=== PATIENT | male | born 1970 | race Caucasian/White ===

== ENCOUNTER 2018-07-16 17:32 | Emergency (ER) | payer MEDICAID, OTHER ==
[~2018-07-16] VITALS: Ht 180.3 cm; Wt 137.0 kg
[~2018-07-16 17:32] MED LIST: DIABETIC MEDS
[2018-07-17] MEDS ORDERED: SODIUM CHLORIDE 0.9% 1,000 ML IV ONE (07:15)
[2018-07-17 08:50] LABS: CLARITY URINE CLEAR (CLEAR); COLOR URINE YELLOW (YELLOW); KETONES URINE 1+ (NEGATIVE); LEUKOCYTE ESTERASE URINE NEGATIVE (NEGATIVE); NITRITE URINE NEGATIVE (NEGATIVE); OCCULT BLOOD URINE NEGATIVE (NEGATIVE); PH URINE 6.5 (4.5-8.0); PROTEIN URINE NEGATIVE (NEGATIVE); SPECIFIC GRAVITY URINE 1.035 (1.005-1.030); UROBILINOGEN URINE 0.2 E.U./dL (0.2-1.0)
[2018-07-17 10:30] VITALS: BP 150/72
== END 2018-07-17 10:30 | disposition home or self-care (01) ==
LOC: ER 18:19
DX: J06.9 Acute upper respiratory infection, unspecified (principal); E11.65 Type 2 diabetes mellitus with hyperglycemia; I10 Essential (primary) hypertension; Z90.89 Acquired absence of other organs; Z79.84 Long term (current) use of oral hypoglycemic drugs
CPT/HCPCS: 71045; 81003; 82962; 96360; 99284; J7030

== ENCOUNTER 2018-07-22 07:02 | Emergency (ER) | payer MEDICAID ==
[~2018-07-22] VITALS: Ht 177.8 cm; Wt 114.0 kg
[2018-07-22] MEDS ORDERED: DIPHENHYDRAMINE 50MG/ML VIAL IV ONE (07:30)
[2018-07-22] MEDS ORDERED: EPINEPHRINE 1:1000 1 MG/ML AMP SUBCUT ONE (07:30)
[2018-07-22] MEDS ORDERED: METHYLPREDNISOLONE SOD SUCC 125 MG/2 ML VIAL IV ONE (07:30)
[2018-07-22 08:07] LABS: BASOPHILS % 0.4 % (0.0-2.0); EOSINOPHILS % 1.2 % (0.0-5.0); HEMATOCRIT. 41.1 % (42.0-52.0); HEMOGLOBIN. 14.1 g/dL (14.0-18.0); LYMPHOCYTES % 36.7 % (20.0-50.0); MEAN CORPUSCULAR HEMOGLOBIN 29.2 pg (28.0-32.0); MEAN CORPUSCULAR VOLUME 85.2 fL (80.0-94.0); MEAN PLATELET VOLUME 7.6 fl (7.4-10.4); MONOCYTES % 8.6 % (2.0-8.0); NEUTROPHILS % 53.1 % (40.0-76.0); PLATELET 221 x1000/uL (130-400); RED BLOOD CELL COUNT 4.83 mill/uL (4.7-6.1); RED CELL DISTRIBUTION WIDTH 12.9 % (11.6-14.6)
[2018-07-22 08:09] LABS: CHLORIDE 99 mEq/L (98-107)
[2018-07-22 10:13] VITALS: BP 119/55
== END 2018-07-22 09:30 | disposition home or self-care (01) ==
LOC: ER 07:16
DX: T78.40XA Allergy, unspecified, initial encounter (principal); R06.02 Shortness of breath; R05 Cough; E11.9 Type 2 diabetes mellitus without complications; I10 Essential (primary) hypertension; X58.XXXA Exposure to other specified factors, initial encounter
CPT/HCPCS: 36415; 71045; 80053; 83880; 84484; 85025; 93005; 96372; 96374; 96375; 99284; J1200; J2930; J3490

== ENCOUNTER 2018-08-27 17:51 | Emergency (ER) | payer MEDICAID ==
[~2018-08-27] VITALS: Ht 180.3 cm; Wt 136.4 kg
[2018-08-27] MEDS ORDERED: ONDANSETRON HCL 4MG/2ML INJ IV STA (18:58)
[2018-08-27 19:18] LABS: BASOPHILS % 0.5 % (0.0-2.0); EOSINOPHILS % 0.3 % (0.0-5.0); HEMATOCRIT. 43.8 % (42.0-52.0); HEMOGLOBIN. 14.9 g/dL (14.0-18.0); LYMPHOCYTES % 24.1 % (20.0-50.0); MEAN CORPUSCULAR HEMOGLOBIN 29.2 pg (28.0-32.0); MEAN CORPUSCULAR VOLUME 85.8 fL (80.0-94.0); MEAN PLATELET VOLUME 7.2 fl (7.4-10.4); MONOCYTES % 6.4 % (2.0-8.0); NEUTROPHILS % 68.7 % (40.0-76.0); PLATELET 289 x1000/uL (130-400); RED BLOOD CELL COUNT 5.11 mill/uL (4.7-6.1); RED CELL DISTRIBUTION WIDTH 13.1 % (11.6-14.6)
[2018-08-27 19:20] LABS: CHLORIDE 103 mEq/L (98-107)
[2018-08-27 19:24] LABS: ETHANOL BLOOD 27 mg/dL
[2018-08-27 19:25] LABS: D-DIMER 0.49 mg/L FEU (<0.50); INR 0.9; PARTIAL THROMBOPLASTIN TIME 24.4 sec (23.4-31.0); PROTHROMBIN TIME 9.6 sec (9.6-11.0)
[2018-08-27 20:02] LABS: CLARITY URINE CLEAR (CLEAR); COLOR URINE YELLOW (YELLOW); KETONES URINE NEGATIVE (NEGATIVE); LEUKOCYTE ESTERASE URINE NEGATIVE (NEGATIVE); NITRITE URINE NEGATIVE (NEGATIVE); OCCULT BLOOD URINE NEGATIVE (NEGATIVE); PROTEIN URINE NEGATIVE (NEGATIVE); SPECIFIC GRAVITY URINE 1.007 (1.005-1.030); UROBILINOGEN URINE 0.2 E.U./dL (0.2-1.0)
[2018-08-27 20:34] LABS: *AMPHETAMINES SCREEN URINE NEGATIVE (NEGATIVE); *BARBITURATES SCREEN URINE NEGATIVE (NEGATIVE); *BENZODIAZEPINES SCREEN URINE NEGATIVE (NEGATIVE); *COCAINE SCREEN URINE NEGATIVE (NEGATIVE)
[2018-08-27 20:35] LABS: CANNABINOID URINE SCREEN NEGATIVE (NEGATIVE); METHADONE URINE SCREEN NEGATIVE (NEGATIVE); OPIATES URINE SCREEN NEGATIVE (NEGATIVE); PHENCYCLIDINE URINE SCREEN NEGATIVE (NEGATIVE)
[2018-08-27] MEDS ORDERED: INSULIN REGULAR (HUMULIN R) 300UNITS/3ML SUBCUT ONE (21:45)
[2018-08-27 21:59] VITALS: BP 144/78
== END 2018-08-27 22:02 | disposition home or self-care (01) ==
LOC: ER 17:51
DX: R06.02 Shortness of breath (principal); E11.65 Type 2 diabetes mellitus with hyperglycemia; I10 Essential (primary) hypertension; Z79.84 Long term (current) use of oral hypoglycemic drugs
CPT/HCPCS: 36415; 71045; 80053; 80305; 80320; 81003; 82962; 83690; 83880; 84484; 85025; 85379; 85610; 85730; 93005; 96372; 96374; 99284; J1815; J2405; G0480

== ENCOUNTER 2018-09-02 03:17 | Emergency (ER) | payer MEDICAID ==
[~2018-09-02] VITALS: Ht 172.7 cm; Wt 113.0 kg
[2018-09-02 04:06] VITALS: BP 177/118
== END 2018-09-02 06:52 | disposition left against medical advice (07) ==
LOC: ER 03:17
DX: F41.9 Anxiety disorder, unspecified (principal); Z53.21 Procedure and treatment not carried out due to patient leaving prior to being seen by health care provider
CPT/HCPCS: 82962

== ENCOUNTER 2018-11-09 12:12 | Emergency (ER) | payer MEDICAID ==
[~2018-11-09] VITALS: Ht 175.3 cm; Wt 132.0 kg
[2018-11-09] MEDS ORDERED: LORAZEPAM 2MG/ML CPJ IV STA (12:36)
[2018-11-09 12:59] LABS: BASOPHILS % 0.5 % (0.0-2.0); EOSINOPHILS % 0.3 % (0.0-5.0); HEMATOCRIT. 42.5 % (42.0-52.0); HEMOGLOBIN. 14.4 g/dL (14.0-18.0); LYMPHOCYTES % 18.9 % (20.0-50.0); MEAN CORPUSCULAR HEMOGLOBIN 28.9 pg (28.0-32.0); MEAN CORPUSCULAR VOLUME 85.2 fL (80.0-94.0); MONOCYTES % 5.4 % (2.0-8.0); NEUTROPHILS % 74.9 % (40.0-76.0); PLATELET 301 x1000/uL (130-400); RED BLOOD CELL COUNT 4.98 mill/uL (4.7-6.1)
[2018-11-09 13:08] LABS: CHLORIDE 101 mEq/L (98-107)
[2018-11-09 13:14] LABS: ETHANOL BLOOD < 10 mg/dL
[2018-11-09 13:17] LABS: CLARITY URINE CLEAR (CLEAR); COLOR URINE YELLOW (YELLOW); KETONES URINE 1+ (NEGATIVE); LEUKOCYTE ESTERASE URINE NEGATIVE (NEGATIVE); NITRITE URINE NEGATIVE (NEGATIVE); OCCULT BLOOD URINE NEGATIVE (NEGATIVE); PROTEIN URINE NEGATIVE (NEGATIVE); SPECIFIC GRAVITY URINE 1.017 (1.005-1.030); UROBILINOGEN URINE 0.2 E.U./dL (0.2-1.0)
[2018-11-09 13:41] LABS: *AMPHETAMINES SCREEN URINE NEGATIVE (NEGATIVE); *BARBITURATES SCREEN URINE NEGATIVE (NEGATIVE); *COCAINE SCREEN URINE NEGATIVE (NEGATIVE)
[2018-11-09 13:42] LABS: CANNABINOID URINE SCREEN NEGATIVE (NEGATIVE); METHADONE URINE SCREEN NEGATIVE (NEGATIVE); OPIATES URINE SCREEN NEGATIVE (NEGATIVE); PHENCYCLIDINE URINE SCREEN NEGATIVE (NEGATIVE)
[2018-11-09 13:53] LABS: *BENZODIAZEPINES SCREEN URINE NEGATIVE (NEGATIVE)
[2018-11-09 15:04] VITALS: BP 144/75
== END 2018-11-09 15:15 | disposition home or self-care (01) ==
LOC: ER 12:12
DX: F10.239 Alcohol dependence with withdrawal, unspecified (principal); F41.9 Anxiety disorder, unspecified; E11.9 Type 2 diabetes mellitus without complications; I10 Essential (primary) hypertension; R11.0 Nausea; Z88.8 Allergy status to other drugs, medicaments and biological substances
CPT/HCPCS: 36415; 80053; 80305; 80320; 81003; 82962; 85025; 96372; 99283; J2060; G0480

== ENCOUNTER 2018-12-20 17:54 | Emergency (ER) | payer MEDICAID ==
[~2018-12-20] VITALS: Ht 180.3 cm; Wt 136.0 kg
[2018-12-20 18:58] LABS: BASOPHILS % 0.9 % (0.0-2.0); EOSINOPHILS % 0.5 % (0.0-5.0); HEMATOCRIT. 43.2 % (42.0-52.0); HEMOGLOBIN. 14.5 g/dL (14.0-18.0); LYMPHOCYTES % 21.4 % (20.0-50.0); MEAN CORPUSCULAR HEMOGLOBIN 28.9 pg (28.0-32.0); MEAN CORPUSCULAR VOLUME 86.2 fL (80.0-94.0); MEAN PLATELET VOLUME 7.3 fl (7.4-10.4); MONOCYTES % 6.5 % (2.0-8.0); NEUTROPHILS % 70.7 % (40.0-76.0); PLATELET 282 x1000/uL (130-400); RED BLOOD CELL COUNT 5.01 mill/uL (4.7-6.1); RED CELL DISTRIBUTION WIDTH 13.3 % (11.6-14.6)
[2018-12-20 19:04] LABS: CHLORIDE 101 mEq/L (98-107)
[2018-12-20] MEDS ORDERED: CLONIDINE 0.2MG TABLET PO NR (19:45)
[2018-12-20 20:40] VITALS: BP 143/85
== END 2018-12-20 20:59 | disposition home or self-care (01) ==
LOC: ER 17:54
DX: I10 Essential (primary) hypertension (principal); E11.65 Type 2 diabetes mellitus with hyperglycemia; F41.9 Anxiety disorder, unspecified; R74.0 Nonspecific elevation of levels of transaminase and lactic acid dehydrogenase [LDH]; Z91.14 Patient's other noncompliance with medication regimen; Z79.84 Long term (current) use of oral hypoglycemic drugs; Z90.49 Acquired absence of other specified parts of digestive tract; Z90.89 Acquired absence of other organs
CPT/HCPCS: 36415; 71045; 82962; 83880; 84484; 93005; 99284

== ENCOUNTER 2018-12-28 19:29 | Emergency (ER) | payer MEDICAID ==
[~2018-12-28] VITALS: Ht 180.3 cm; Wt 136.0 kg
[2018-12-28] MEDS ORDERED: SODIUM CHLORIDE 0.9% 1,000 ML IV ONE (20:48)
[2018-12-28] MEDS ORDERED: ONDANSETRON HCL 4MG/2ML INJ IV STA (20:48)
[2018-12-28] MEDS ORDERED: LORAZEPAM 1MG TABLET PO ONE (21:00)
[2018-12-28 21:06] LABS: CHLORIDE 104 mEq/L (98-107)
[2018-12-28 21:10] LABS: PROTHROMBIN TIME 10.1 sec (9.6-11.0)
[2018-12-28 21:17] LABS: EOSINOPHILS % 0.5 % (0.0-5.0); HEMATOCRIT. 39.3 % (42.0-52.0); HEMOGLOBIN. 13.5 g/dL (14.0-18.0); LYMPHOCYTES % 23.4 % (20.0-50.0); MEAN CORPUSCULAR HEMOGLOBIN 29.4 pg (28.0-32.0); MEAN CORPUSCULAR VOLUME 85.3 fL (80.0-94.0); MEAN PLATELET VOLUME 7.8 fl (7.4-10.4); MONOCYTES % 7.4 % (2.0-8.0); NEUTROPHILS % 67.7 % (40.0-76.0); PLATELET 246 x1000/uL (130-400); RED BLOOD CELL COUNT 4.61 mill/uL (4.7-6.1); RED CELL DISTRIBUTION WIDTH 13.3 % (11.6-14.6)
[2018-12-28] MEDS: CLONIDINE 0.2MG TABLET PO NR (22:10)
[2018-12-28 23:12] VITALS: BP 155/83
== END 2018-12-28 23:13 | disposition home or self-care (01) ==
LOC: ER 19:29
DX: R11.0 Nausea (principal); F10.10 Alcohol abuse, uncomplicated; Y90.0 Blood alcohol level of less than 20 mg/100 ml; E11.9 Type 2 diabetes mellitus without complications; I10 Essential (primary) hypertension
CPT/HCPCS: 36415; 71045; 80053; 82962; 83690; 84484; 85025; 85610; 93005; 96361; 96374; 99284; J2405; J7030

== ENCOUNTER 2019-01-21 13:40 | Emergency (ER) | payer MEDICAID ==
[~2019-01-21] VITALS: Ht 180.3 cm; Wt 137.0 kg
[2019-01-21] MEDS ORDERED: ONDANSETRON HCL 4MG/2ML INJ IV STA (15:31)
[2019-01-21] MEDS ORDERED: SODIUM CHLORIDE 0.9% 1,000 ML IV ONE (15:31)
[2019-01-21 16:09] LABS: BASOPHILS % 0.3 % (0.0-2.0); EOSINOPHILS % 0.3 % (0.0-5.0); HEMATOCRIT. 42.3 % (42.0-52.0); HEMOGLOBIN. 14.4 g/dL (14.0-18.0); LYMPHOCYTES % 21.3 % (20.0-50.0); MEAN CORPUSCULAR HEMOGLOBIN 29.3 pg (28.0-32.0); MEAN CORPUSCULAR VOLUME 85.8 fL (80.0-94.0); MEAN PLATELET VOLUME 7.4 fl (7.4-10.4); MONOCYTES % 5.9 % (2.0-8.0); NEUTROPHILS % 72.2 % (40.0-76.0); PLATELET 255 x1000/uL (130-400); RED BLOOD CELL COUNT 4.92 mill/uL (4.7-6.1); RED CELL DISTRIBUTION WIDTH 12.9 % (11.6-14.6)
[2019-01-21 16:16] LABS: CHLORIDE 106 mEq/L (98-107)
[2019-01-21] MEDS ORDERED: HYDRALAZINE 20MG/ML VIAL IV ONE (17:00)
[2019-01-21] MEDS ORDERED: LORAZEPAM 2MG/ML CPJ IV ONE (17:30)
[2019-01-21 20:23] LABS: CLARITY URINE CLEAR (CLEAR); COLOR URINE YELLOW (YELLOW); KETONES URINE NEGATIVE (NEGATIVE); LEUKOCYTE ESTERASE URINE NEGATIVE (NEGATIVE); NITRITE URINE NEGATIVE (NEGATIVE); OCCULT BLOOD URINE NEGATIVE (NEGATIVE); PROTEIN URINE NEGATIVE (NEGATIVE); SPECIFIC GRAVITY URINE 1.008 (1.005-1.030); UROBILINOGEN URINE 0.2 E.U./dL (0.2-1.0)
[2019-01-21] MEDS ORDERED: CHLORDIAZEPOXIDE 25MG CAPSULE PO NR (22:30)
[2019-01-21 23:00] VITALS: BP 154/92
== END 2019-01-21 23:12 | disposition left against medical advice (07) ==
LOC: ER 13:40 → CANBEDREQ 01-22 00:10
DX: F10.239 Alcohol dependence with withdrawal, unspecified (principal); R11.0 Nausea; E11.9 Type 2 diabetes mellitus without complications; I10 Essential (primary) hypertension; Y90.9 Presence of alcohol in blood, level not specified; Z90.89 Acquired absence of other organs; Z90.49 Acquired absence of other specified parts of digestive tract
CPT/HCPCS: 36415; 80053; 81003; 82962; 83690; 85025; 93005; 96374; 96375; 99283; J0360; J2060; J2405; J7030

== ENCOUNTER 2019-01-26 14:45 | Emergency (ER) | payer MEDICAID ==
[~2019-01-26] VITALS: Ht 180.3 cm; Wt 136.0 kg
[2019-01-26 16:45] VITALS: BP 146/98
== END 2019-01-26 16:47 | disposition home or self-care (01) ==
LOC: ER 14:45
DX: I10 Essential (primary) hypertension (principal); E11.9 Type 2 diabetes mellitus without complications; F41.9 Anxiety disorder, unspecified; Z91.14 Patient's other noncompliance with medication regimen; Z90.49 Acquired absence of other specified parts of digestive tract; Z90.89 Acquired absence of other organs
CPT/HCPCS: 99283

== ENCOUNTER 2019-04-02 11:55 | Emergency (ER) | payer MEDICAID ==
[~2019-04-02] VITALS: Ht 180.3 cm; Wt 138.0 kg
[2019-04-02] MEDS ORDERED: HYDRALAZINE 20MG/ML VIAL IV ONE (12:15)
[2019-04-02 12:58] LABS: BASOPHILS % 1.1 % (0.0-2.0); EOSINOPHILS % 0.5 % (0.0-5.0); HEMATOCRIT. 39.4 % (42.0-52.0); HEMOGLOBIN. 13.6 g/dL (14.0-18.0); MEAN CORPUSCULAR HEMOGLOBIN 29.7 pg (28.0-32.0); MEAN CORPUSCULAR VOLUME 85.8 fL (80.0-94.0); MEAN PLATELET VOLUME 7.4 fl (7.4-10.4); MONOCYTES % 6.5 % (2.0-8.0); NEUTROPHILS % 67.9 % (40.0-76.0); PLATELET 289 x1000/uL (130-400); RED BLOOD CELL COUNT 4.59 mill/uL (4.7-6.1); RED CELL DISTRIBUTION WIDTH 13.3 % (11.6-14.6)
[2019-04-02 13:05] LABS: CHLORIDE 101 mEq/L (98-107)
[2019-04-02 13:37] VITALS: BP 128/77
== END 2019-04-02 13:37 | disposition home or self-care (01) ==
LOC: ER 11:55
DX: I10 Essential (primary) hypertension (principal); T50.905A Adverse effect of unspecified drugs, medicaments and biological substances, initial encounter; E11.8 Type 2 diabetes mellitus with unspecified complications; F41.9 Anxiety disorder, unspecified; Y92.89 Other specified places as the place of occurrence of the external cause; Z90.89 Acquired absence of other organs; Z90.49 Acquired absence of other specified parts of digestive tract
CPT/HCPCS: 36415; 82962; 93005; 99284; J0360

== ENCOUNTER 2019-05-16 12:02 | Emergency (ER) | payer MEDICAID ==
[~2019-05-16] VITALS: Ht 180.3 cm; Wt 137.0 kg
[2019-05-16 14:12] VITALS: BP 173/98
[2019-05-16] MEDS ORDERED: LORAZEPAM 1MG TABLET PO ONE (15:00)
[2019-05-16] MEDS ORDERED: CHLORDIAZEPOXIDE 25MG CAPSULE PO ONE (15:00)
== END 2019-05-16 15:45 | disposition home or self-care (01) ==
LOC: ER 12:02
DX: F10.239 Alcohol dependence with withdrawal, unspecified (principal); E11.9 Type 2 diabetes mellitus without complications; I10 Essential (primary) hypertension; Y90.9 Presence of alcohol in blood, level not specified; Z90.49 Acquired absence of other specified parts of digestive tract
CPT/HCPCS: 93005; 99283

== ENCOUNTER → 2019-06-02 | Emergency (ER) | payer MEDICAID ==
[~2019-06-02] VITALS: Ht 175.3 cm; Wt 137.0 kg
[~2019-06-02] MED LIST changes: +FAMOTIDINE 20MG/2ML VIAL IV STA; +ONDANSETRON 4MG ODT PO ONE; +ONDANSETRON HCL 4MG/2ML INJ IV STA; +SODIUM CHLORIDE 0.9% 1,000 ML IV ONE
[2019-06-03] LABS: BASOPHILS % 0.5 % (0.0-2.0); EOSINOPHILS % 0.5 % (0.0-5.0); HEMATOCRIT. 48.3 % (42.0-52.0); HEMOGLOBIN. 16.3 g/dL (14.0-18.0); LYMPHOCYTES % 38.9 % (20.0-50.0); MEAN CORPUSCULAR HEMOGLOBIN 28.9 pg (28.0-32.0); MEAN CORPUSCULAR VOLUME 85.5 fL (80.0-94.0); MEAN PLATELET VOLUME 6.8 fl (7.4-10.4); NEUTROPHILS % 54.1 % (40.0-76.0); PLATELET 296 x1000/uL (130-400); RED BLOOD CELL COUNT 5.65 mill/uL (4.7-6.1); RED CELL DISTRIBUTION WIDTH 13.4 % (11.6-14.6)
[2019-06-03 00:03] LABS: PROTHROMBIN TIME 10.1 sec (9.6-11.0)
[2019-06-03 00:07] LABS: CHLORIDE 106 mEq/L (98-107)
[2019-06-03 00:17] LABS: BETA HYDROXYBUTYRATE 0.7 mMol/L (0.0-0.3)
[2019-06-03 00:39] LABS: ETHANOL BLOOD 327 mg/dL
[2019-06-03 01:00] VITALS: BP 138/75
== END ==
LOC: ER 14:18
DX: F10.229 Alcohol dependence with intoxication, unspecified (principal); E11.9 Type 2 diabetes mellitus without complications; I10 Essential (primary) hypertension; Z90.49 Acquired absence of other specified parts of digestive tract; Y90.8 Blood alcohol level of 240 mg/100 ml or more
CPT/HCPCS: 36415; 71045; 80053; 80320; 82010; 83605; 83690; 85025; 85610; 96374; 96375; 99284; J7030; J2405; J3490; G0480

== ENCOUNTER 2019-06-11 14:30 | Emergency (ER) | payer MEDICAID ==
[~2019-06-11] VITALS: Ht 177.8 cm; Wt 110.0 kg
[~2019-06-11 14:30] MED LIST changes: -FAMOTIDINE 20MG/2ML VIAL IV STA; -ONDANSETRON 4MG ODT PO ONE; -ONDANSETRON HCL 4MG/2ML INJ IV STA; -SODIUM CHLORIDE 0.9% 1,000 ML IV ONE
[2019-06-11 14:44] VITALS: BP 177/103
[2019-06-11] MEDS ORDERED: CHLORDIAZEPOXIDE 25MG CAPSULE PO ONE (16:15)
[2019-06-11 16:46] LABS: CHLORIDE 105 mEq/L (98-107)
== END 2019-06-11 18:53 | disposition home or self-care (01) ==
LOC: ER 15:07
DX: F10.239 Alcohol dependence with withdrawal, unspecified (principal); E11.9 Type 2 diabetes mellitus without complications; I10 Essential (primary) hypertension; Z90.49 Acquired absence of other specified parts of digestive tract; Z90.89 Acquired absence of other organs; Y90.9 Presence of alcohol in blood, level not specified
CPT/HCPCS: 36415; 80048; 82962; 99283

== ENCOUNTER 2020-01-16 11:19 | Emergency (ER) | payer MEDICAID ==
[~2020-01-16] VITALS: Ht 180.3 cm; Wt 127.0 kg
[2020-01-16] MEDS ORDERED: SODIUM CHLORIDE 0.9% 1,000 ML IV ONE (12:24)
[2020-01-16 12:36] LABS: BASOPHILS % 0.4 % (0.0-2.0); EOSINOPHILS % 0.3 % (0.0-5.0); HEMATOCRIT. 44.8 % (42.0-52.0); HEMOGLOBIN. 15.2 g/dL (14.0-18.0); LYMPHOCYTES % 26.7 % (20.0-50.0); MEAN CORPUSCULAR HEMOGLOBIN 27.9 pg (28.0-32.0); MONOCYTES % 4.9 % (2.0-8.0); NEUTROPHILS % 67.7 % (40.0-76.0); PLATELET 293 x1000/uL (130-400); RED BLOOD CELL COUNT 5.45 mill/uL (4.7-6.1); RED CELL DISTRIBUTION WIDTH 14.7 % (11.6-14.6)
[2020-01-16 12:41] LABS: CHLORIDE 104 mEq/L (98-107)
[2020-01-16 12:52] LABS: ETHANOL BLOOD 261 mg/dL
[2020-01-16 13:15] LABS: CLARITY URINE CLEAR (CLEAR); COLOR URINE YELLOW (YELLOW); KETONES URINE TRACE (NEGATIVE); LEUKOCYTE ESTERASE URINE NEGATIVE (NEGATIVE); NITRITE URINE NEGATIVE (NEGATIVE); OCCULT BLOOD URINE NEGATIVE (NEGATIVE); PROTEIN URINE NEGATIVE (NEGATIVE); SPECIFIC GRAVITY URINE 1.019 (1.005-1.030); UROBILINOGEN URINE 0.2 E.U./dL (0.2-1.0)
[2020-01-16 14:05] VITALS: BP 143/85
== END 2020-01-16 14:08 | disposition home or self-care (01) ==
LOC: ER 11:40
DX: F10.129 Alcohol abuse with intoxication, unspecified (principal); E78.00 Pure hypercholesterolemia, unspecified; I10 Essential (primary) hypertension; E11.9 Type 2 diabetes mellitus without complications; Z90.49 Acquired absence of other specified parts of digestive tract; Z90.89 Acquired absence of other organs; Y90.8 Blood alcohol level of 240 mg/100 ml or more
CPT/HCPCS: 36415; 80053; 80320; 81003; 85025; 93005; 96360; 99284; J7030; G0480

== ENCOUNTER 2020-11-04 16:19 | Emergency (ER) | payer MEDICAID ==
[~2020-11-04] VITALS: Ht 177.8 cm; Wt 127.0 kg
[~2020-11-04 16:19] MED LIST changes: +APIX5TAB PO; +ATOR20TA65 MT; +DEXA6TAB MT; +ERTU15TA PO; +FAMO-135 MT; +LISI20TA31 PO; +LORA2ORA5 PO; +METF-414 MT; +SERT20OR6 PO; +[UNRECOGNIZED DRUG - CODE]
[2020-11-04] MEDS ORDERED: SODIUM CHLORIDE 0.9% 1,000 ML IV ONE (17:00)
[2020-11-04 17:08] LABS: BASOPHILS % 0.6 % (0.0-2.0); EOSINOPHILS % 0.1 % (0.0-5.0); HEMATOCRIT. 43.5 % (42.0-52.0); LYMPHOCYTES % 14.1 % (20.0-50.0); MEAN CORPUSCULAR HEMOGLOBIN 28.5 pg (28.0-32.0); MEAN CORPUSCULAR VOLUME 82.4 fL (80.0-94.0); MEAN PLATELET VOLUME 6.9 fl (7.4-10.4); MONOCYTES % 6.7 % (2.0-8.0); NEUTROPHILS % 78.5 % (40.0-76.0); PLATELET 228 x1000/uL (130-400); RED BLOOD CELL COUNT 5.28 mill/uL (4.7-6.1)
[2020-11-04 17:16] LABS: CHLORIDE 100 mEq/L (98-107)
[2020-11-04 17:32] LABS: ETHANOL BLOOD 332 mg/dL
[2020-11-04] MEDS ORDERED: LORAZEPAM 2MG/ML CPJ IV ONE ×2 (18:30→20:00)
[2020-11-04 18:43] LABS: CLARITY URINE CLEAR (CLEAR); COLOR URINE YELLOW (YELLOW); KETONES URINE 1+ (NEGATIVE); LEUKOCYTE ESTERASE URINE NEGATIVE (NEGATIVE); NITRITE URINE NEGATIVE (NEGATIVE); OCCULT BLOOD URINE TRACE (NEGATIVE); PROTEIN URINE TRACE (NEGATIVE); SPECIFIC GRAVITY URINE 1.021 (1.005-1.030); UROBILINOGEN URINE 0.2 E.U./dL (0.2-1.0)
[2020-11-04 18:55] LABS: *BENZODIAZEPINES SCREEN URINE NEGATIVE (NEGATIVE); CANNABINOID URINE SCREEN NEGATIVE (NEGATIVE); METHADONE URINE SCREEN NEGATIVE (NEGATIVE)
[2020-11-04 18:56] LABS: *AMPHETAMINES SCREEN URINE NEGATIVE (NEGATIVE); *BARBITURATES SCREEN URINE NEGATIVE (NEGATIVE); *COCAINE SCREEN URINE NEGATIVE (NEGATIVE); OPIATES URINE SCREEN NEGATIVE (NEGATIVE); PHENCYCLIDINE URINE SCREEN NEGATIVE (NEGATIVE)
[2020-11-04] MEDS ORDERED: INSULIN REGULAR (HUMULIN R) 300UNITS/3ML VIAL SUBCUT NR (19:15)
[2020-11-04] MEDS ORDERED: FOLIC ACID 1 MG, THIAMINE HCL 100 MG, MVI, ADULT NO.1 10 ML in DEXTROSE 5% WATER 1,000 ML IV ONE (20:00)
[2020-11-04 23:19] VITALS: BP 147/95
== END 2020-11-04 23:22 | disposition home or self-care (01) ==
LOC: ER 16:19
DX: F10.229 Alcohol dependence with intoxication, unspecified (principal); E11.65 Type 2 diabetes mellitus with hyperglycemia; I10 Essential (primary) hypertension; F15.10 Other stimulant abuse, uncomplicated; F41.9 Anxiety disorder, unspecified; Y90.8 Blood alcohol level of 240 mg/100 ml or more; Z86.19 Personal history of other infectious and parasitic diseases; Z86.718 Personal history of other venous thrombosis and embolism; Z90.49 Acquired absence of other specified parts of digestive tract; Z79.84 Long term (current) use of oral hypoglycemic drugs; Z79.01 Long term (current) use of anticoagulants; Z86.711 Personal history of pulmonary embolism
CPT/HCPCS: 36415; 71045; 80053; 80305; 80320; 81003; 85025; 93005; 96361; 96365; 96372; 96375; 96376; 99285; J1815; J2060; J3411; J3490; J7030; J7070; Z7610; G0480

== ENCOUNTER 2020-11-06 10:15 | Emergency (ER) | payer MEDICAID ==
[~2020-11-06] VITALS: Ht 177.8 cm; Wt 120.0 kg
[2020-11-06] MEDS ORDERED: HYDROXYZINE 25MG TABLET PO ONE (12:30)
[2020-11-06] MEDS ORDERED: IBUPROFEN 600MG TABLET PO ONE (12:30)
[2020-11-06] MEDS ORDERED: PHENOL/SODIUM PHENOLATE 1.4% SRPAY 177ML MM ONE (12:45)
[2020-11-06] MEDS ORDERED: PHEN20SP MT (12:57)
[2020-11-06] MEDS ORDERED: IBUP-2029 MT (12:57)
[2020-11-06] MEDS ORDERED: HYDR-3782 MT (12:57)
[2020-11-06 13:59] VITALS: BP 146/87
[2020-11-06] MEDS ORDERED: POTASSIUM CHLORIDE 20MEQ TABLET SR PO ONE (14:15)
[2020-11-06 14:36] LABS: *AMPHETAMINES SCREEN URINE NEGATIVE (NEGATIVE); *BARBITURATES SCREEN URINE NEGATIVE (NEGATIVE); *BENZODIAZEPINES SCREEN URINE NEGATIVE (NEGATIVE)
[2020-11-06 14:37] LABS: *COCAINE SCREEN URINE NEGATIVE (NEGATIVE); CANNABINOID URINE SCREEN NEGATIVE (NEGATIVE); METHADONE URINE SCREEN NEGATIVE (NEGATIVE); OPIATES URINE SCREEN NEGATIVE (NEGATIVE); PHENCYCLIDINE URINE SCREEN NEGATIVE (NEGATIVE)
== END 2020-11-06 14:23 | disposition home or self-care (01) ==
LOC: ER 10:15
DX: J02.9 Acute pharyngitis, unspecified (principal); F41.9 Anxiety disorder, unspecified; I10 Essential (primary) hypertension; F17.200 Nicotine dependence, unspecified, uncomplicated; F15.10 Other stimulant abuse, uncomplicated; E11.9 Type 2 diabetes mellitus without complications; Z13.9 Encounter for screening, unspecified; Z79.899 Other long term (current) drug therapy; Z90.49 Acquired absence of other specified parts of digestive tract; Z98.890 Other specified postprocedural states
CPT/HCPCS: 80305; 82962; 99284; 99406

== ENCOUNTER 2021-12-24 14:58 | Emergency (ER) | payer MEDICAID ==
[~2021-12-24] VITALS: Ht 167.6 cm; Wt 101.0 kg
[~2021-12-24 14:58] MED LIST changes: +HYDR-3782 MT; +IBUP-2029 MT; +PHEN20SP MT
[2021-12-25 01:04] VITALS: BP 167/91
== END 2021-12-25 01:05 | disposition home or self-care (01) ==
LOC: ER 14:58
DX: S92.311A Displaced fracture of first metatarsal bone, right foot, initial encounter for closed fracture (principal); I10 Essential (primary) hypertension; E11.9 Type 2 diabetes mellitus without complications; Z79.84 Long term (current) use of oral hypoglycemic drugs; Z90.49 Acquired absence of other specified parts of digestive tract; Z86.718 Personal history of other venous thrombosis and embolism; Z79.01 Long term (current) use of anticoagulants; W22.01XA Walked into wall, initial encounter; Y93.89 Activity, other specified; Y92.018 Other place in single-family (private) house as the place of occurrence of the external cause
CPT/HCPCS: 73600; 73620; 73700; 93970; 99284

== ENCOUNTER 2022-01-19 11:32 | Inpatient (IN) | payer MEDICAID ==
[~2022-01-19] VITALS: Ht 180.3 cm; Wt 138.8 kg
[2022-01-19] MEDS ORDERED: ONDANSETRON HCL 4MG/2ML INJ IV STA (11:59)
[2022-01-19] MEDS ORDERED: SODIUM CHLORIDE 0.9% 1,000 ML IV ONE (12:00)
[2022-01-19] MEDS ORDERED: LORAZEPAM 1MG TABLET PO ONE ×2 (12:00→17:00)
[2022-01-19] MEDS ORDERED: FOLIC ACID 1 MG, THIAMINE HCL 100 MG, MVI, ADULT NO.1 10 ML in DEXTROSE 5% WATER 1,000 ML IV ONE ×4 (12:15)
[2022-01-19 12:32] LABS: BASOPHILS % 0.3 % (0.0-2.0); EOSINOPHILS % 0.4 % (0.0-5.0); HEMATOCRIT. 41.9 % (42.0-52.0); HEMOGLOBIN. 14.2 g/dL (14.0-18.0); MEAN CORPUSCULAR HEMOGLOBIN 29.1 pg (28.0-32.0); MEAN PLATELET VOLUME 6.8 fl (7.4-10.4); MONOCYTES % 7.9 % (2.0-8.0); NEUTROPHILS % 72.4 % (40.0-76.0); PLATELET 151 x1000/uL (130-400); RED BLOOD CELL COUNT 4.87 mill/uL (4.7-6.1); RED CELL DISTRIBUTION WIDTH 15.1 % (11.6-14.6)
[2022-01-19 12:39] LABS: CHLORIDE 101 mEq/L (98-107)
[2022-01-19 12:49] LABS: ETHANOL BLOOD 251 mg/dL
[2022-01-19] MEDS ORDERED: VANCOMYCIN 1G PREMIX 200 ML IV NR (13:15)
[2022-01-19] MEDS ORDERED: SODIUM CHLORIDE 0.9% 1000ML BAG (SEPSIS BOLUS) IV NR (13:15)
[2022-01-19] MEDS ORDERED: PIPERACILLIN/TAZ 3.375G PREMIX 50 ML IV NR (13:15)
[2022-01-19 13:36] LABS: CLARITY URINE CLEAR (CLEAR); COLOR URINE YELLOW (YELLOW); KETONES URINE 3+ (NEGATIVE); LEUKOCYTE ESTERASE URINE NEGATIVE (NEGATIVE); NITRITE URINE NEGATIVE (NEGATIVE); OCCULT BLOOD URINE NEGATIVE (NEGATIVE); PH URINE 5.5 (4.5-8.0); PROTEIN URINE NEGATIVE (NEGATIVE); SPECIFIC GRAVITY URINE 1.015 (1.005-1.030); UROBILINOGEN URINE 0.2 E.U./dL (0.2-1.0)
[2022-01-19] MEDS ORDERED: ACETAMINOPHEN 325MG TABLET PO PRN (19:45)
[2022-01-19] MEDS ORDERED: HYDRALAZINE 20MG/ML VIAL IV PRN (19:45)
[2022-01-19] MEDS ORDERED: ONDANSETRON HCL 4MG/2ML INJ IV PRN (19:45)
[2022-01-19] MEDS ORDERED: IPRATROPIUM/ALBUTEROL 0.5-3(2.5)MG/3ML NEB HHN PRN (19:45)
[2022-01-19] MEDS ORDERED: DIPHENHYDRAMINE 50MG/ML VIAL IV PRN (19:45)
[2022-01-19] MEDS: CHLORDIAZEPOXIDE 25MG CAPSULE PO SCH (21:18)
[2022-01-19] MEDS: LORAZEPAM 2MG/ML CPJ IV PRN (21:29)
[2022-01-19] MEDS ORDERED: DEXTROSE 50% WATER 50ML SYRINGE IV PRN (21:30)
[2022-01-19 21:45] VITALS: BP 145/64
[2022-01-19] MEDS: VANCOMYCIN 1500MG in DEXTROSE 5% WATER 250ML IV SCH (22:50)
[2022-01-19] MEDS: PIPERACILLIN/TAZOBACTAM 3.375 G in DEXTROSE 5% WATER 50 ML IV SCH (22:50)
[2022-01-19] MEDS: INSULIN LISPRO 100 UNITS/ML SUBCUT SCH (23:05)
[2022-01-19] MEDS: CLONIDINE 0.1MG TABLET PO PRN (23:48)
[2022-01-20] VITALS: BP 159/89
[2022-01-20] MEDS: LORAZEPAM 2MG/ML CPJ IV PRN ×4 (01:10→21:57)
[2022-01-20 03:40] VITALS: BP 155/78
[2022-01-20] MEDS: CHLORDIAZEPOXIDE 25MG CAPSULE PO SCH ×3 (06:41→21:06)
[2022-01-20] MEDS: VANCOMYCIN 1500MG in DEXTROSE 5% WATER 250ML IV SCH (06:41)
[2022-01-20] MEDS: PIPERACILLIN/TAZOBACTAM 3.375 G in DEXTROSE 5% WATER 50 ML IV SCH ×3 (06:42→21:06)
[2022-01-20 07:07] LABS: BASOPHILS % 0.4 % (0.0-2.0); EOSINOPHILS % 0.5 % (0.0-5.0); HEMATOCRIT. 42.4 % (42.0-52.0); HEMOGLOBIN. 14.2 g/dL (14.0-18.0); LYMPHOCYTES % 17.7 % (20.0-50.0); MEAN CORPUSCULAR HEMOGLOBIN 29.1 pg (28.0-32.0); MEAN CORPUSCULAR VOLUME 86.9 fL (80.0-94.0); MEAN PLATELET VOLUME 7.2 fl (7.4-10.4); MONOCYTES % 10.9 % (2.0-8.0); NEUTROPHILS % 70.5 % (40.0-76.0); PLATELET 133 x1000/uL (130-400); RED BLOOD CELL COUNT 4.88 mill/uL (4.7-6.1); RED CELL DISTRIBUTION WIDTH 14.9 % (11.6-14.6)
[2022-01-20 07:21] LABS: CHLORIDE 99 mEq/L (98-107)
[2022-01-20] MEDS: BLOOD SUGAR DIAGNOSTIC STRIP TEST SCH ×4 (07:35→20:54)
[2022-01-20] MEDS ORDERED: INSULIN LISPRO 100 UNITS/ML SUBCUT SCH (07:50)
[2022-01-20 08:00] VITALS: BP 156/95
[2022-01-20] MEDS: INSULIN LISPRO 100 UNITS/ML SUBCUT SCH ×4 (08:48→21:04)
[2022-01-20] MEDS: CLONIDINE 0.1MG TABLET PO PRN (11:44)
[2022-01-20 12:00] VITALS: BP 173/103
[2022-01-20] MEDS: AMLODIPINE 10MG TABLET PO SCH (12:27)
[2022-01-20] MEDS: VANCOMYCIN 1GM PMX (XELLIA) 200 ML IV SCH ×2 (13:47→21:06)
[2022-01-20] MEDS: HYDRALAZINE HCL 100MG TABLET PO SCH ×2 (13:52→21:06)
[2022-01-20 16:00] VITALS: BP 143/87
[2022-01-20 19:56] VITALS: BP 145/90
[2022-01-20] MEDS: INSULIN GLARGINE 100 UNITS/ML SUBCUT SCH (21:05)
[2022-01-21] VITALS: BP 138/88
[2022-01-21] MEDS ORDERED: ZOLPIDEM TARTRATE 5MG TABLET PO PRN (02:00)
[2022-01-21 03:40] VITALS: BP 148/78
[2022-01-21] MEDS: PIPERACILLIN/TAZOBACTAM 3.375 G in DEXTROSE 5% WATER 50 ML IV SCH ×3 (05:36→22:53)
[2022-01-21] MEDS: VANCOMYCIN 1GM PMX (XELLIA) 200 ML IV SCH (05:37)
[2022-01-21] MEDS: CHLORDIAZEPOXIDE 25MG CAPSULE PO SCH ×3 (05:37→22:51)
[2022-01-21] MEDS: HYDRALAZINE HCL 100MG TABLET PO SCH ×5 (05:37→22:51)
[2022-01-21] MEDS: LORAZEPAM 2MG/ML CPJ IV PRN ×3 (05:45→23:00)
[2022-01-21] MEDS: BLOOD SUGAR DIAGNOSTIC STRIP TEST SCH ×4 (06:56→21:00)
[2022-01-21 08:00] VITALS: BP 152/99
[2022-01-21] MEDS: AMLODIPINE 10MG TABLET PO SCH (09:03)
[2022-01-21] MEDS: INSULIN GLARGINE 100 UNITS/ML SUBCUT SCH ×2 (09:05→22:52)
[2022-01-21] MEDS: INSULIN LISPRO 100 UNITS/ML SUBCUT SCH ×4 (09:05→22:52)
[2022-01-21 12:00] VITALS: BP 135/103
[2022-01-21] MEDS: VANCOMYCIN 1.25GM PMX (XELLIA) 250 ML IV SCH (15:39)
[2022-01-21 16:30] VITALS: BP 155/90
[2022-01-21 19:40] VITALS: BP 134/92
[2022-01-22] VITALS (7 sets, daily range): BP systolic 106–144; BP diastolic 64–96
[2022-01-22] MEDS: VANCOMYCIN 1.25GM PMX (XELLIA) 250 ML IV SCH ×4 (00:30→23:26)
[2022-01-22] MEDS: PIPERACILLIN/TAZOBACTAM 3.375 G in DEXTROSE 5% WATER 50 ML IV SCH ×3 (06:06→21:36)
[2022-01-22] MEDS: BLOOD SUGAR DIAGNOSTIC STRIP TEST SCH ×4 (06:06→21:36)
[2022-01-22] MEDS: CHLORDIAZEPOXIDE 25MG CAPSULE PO SCH ×3 (06:06→21:36)
[2022-01-22] MEDS: HYDRALAZINE HCL 100MG TABLET PO SCH ×3 (06:06→21:36)
[2022-01-22] MEDS: LORAZEPAM 2MG/ML CPJ IV PRN ×3 (06:41→21:46)
[2022-01-22] MEDS: INSULIN LISPRO 100 UNITS/ML SUBCUT SCH ×4 (08:56→21:37)
[2022-01-22] MEDS: AMLODIPINE 10MG TABLET PO SCH (09:04)
[2022-01-22] MEDS: INSULIN GLARGINE 100 UNITS/ML SUBCUT SCH ×2 (09:06→21:37)
[2022-01-22 09:16] LABS: BASOPHILS % 0.5 % (0.0-2.0); EOSINOPHILS % 1.2 % (0.0-5.0); HEMATOCRIT. 41.1 % (42.0-52.0); HEMOGLOBIN. 13.9 g/dL (14.0-18.0); LYMPHOCYTES % 19.3 % (20.0-50.0); MEAN CORPUSCULAR HEMOGLOBIN 29.6 pg (28.0-32.0); MEAN CORPUSCULAR VOLUME 87.6 fL (80.0-94.0); MEAN PLATELET VOLUME 7.2 fl (7.4-10.4); MONOCYTES % 10.8 % (2.0-8.0); NEUTROPHILS % 68.2 % (40.0-76.0); PLATELET 135 x1000/uL (130-400); RED CELL DISTRIBUTION WIDTH 14.6 % (11.6-14.6)
[2022-01-22 09:24] LABS: CHLORIDE 105 mEq/L (98-107)
[2022-01-23 03:32] VITALS: BP 115/75
[2022-01-23] MEDS: VANCOMYCIN 1.25GM PMX (XELLIA) 250 ML IV SCH ×2 (06:03→15:00)
[2022-01-23] MEDS: PIPERACILLIN/TAZOBACTAM 3.375 G in DEXTROSE 5% WATER 50 ML IV SCH ×2 (06:04→14:00)
[2022-01-23] MEDS: CHLORDIAZEPOXIDE 25MG CAPSULE PO SCH ×2 (06:04→15:22)
[2022-01-23] MEDS: HYDRALAZINE HCL 100MG TABLET PO SCH ×2 (06:06→15:21)
[2022-01-23] MEDS: BLOOD SUGAR DIAGNOSTIC STRIP TEST SCH ×2 (06:06→11:55)
[2022-01-23] MEDS: LORAZEPAM 2MG/ML CPJ IV PRN ×2 (06:12→13:18)
[2022-01-23 06:42] LABS: CHLORIDE 105 mEq/L (98-107)
[2022-01-23 08:00] VITALS: BP 104/62
[2022-01-23] MEDS: INSULIN LISPRO 100 UNITS/ML SUBCUT SCH ×2 (08:57→11:54)
[2022-01-23] MEDS: AMLODIPINE 10MG TABLET PO SCH (08:57)
[2022-01-23] MEDS: INSULIN GLARGINE 100 UNITS/ML SUBCUT SCH (09:02)
[2022-01-23] MEDS ORDERED: CEPH500C2 MT ×3 (10:48→10:50)
[2022-01-23] MEDS ORDERED: POTASSIUM CHLORIDE 20MEQ/PACKET PO SCH (11:00)
[2022-01-23 11:58] VITALS: BP 141/87
[2022-01-23 12:00] VITALS: BP 104/62
[2022-01-23] MEDS: CLONIDINE 0.1MG TABLET PO PRN (13:16)
== END 2022-01-23 16:03 | disposition home or self-care (01) | DRG 342 ==
LOC: ER 11:32 → EDBEDREQ 15:26 → 6WST 17:45 → EDBEDREQ 17:53 → EDBEDREQTM 17:53 → ENRESERV 20:46
PROVIDERS: ADMIT Internal Medicine; ATTEND Internal Medicine
DX: S92.311A Displaced fracture of first metatarsal bone, right foot, initial encounter for closed fracture (principal); E11.65 Type 2 diabetes mellitus with hyperglycemia; F10.229 Alcohol dependence with intoxication, unspecified; I10 Essential (primary) hypertension; R74.01 Elevation of levels of liver transaminase levels; S93.301A Unspecified subluxation of right foot, initial encounter; F10.239 Alcohol dependence with withdrawal, unspecified; Z72.89 Other problems related to lifestyle; Z91.14 Patient's other noncompliance with medication regimen; Z86.718 Personal history of other venous thrombosis and embolism; Z90.49 Acquired absence of other specified parts of digestive tract; Z83.3 Family history of diabetes mellitus; Z82.49 Family history of ischemic heart disease and other diseases of the circulatory system; V18.4XXA Pedal cycle driver injured in noncollision transport accident in traffic accident, initial encounter; Y90.8 Blood alcohol level of 240 mg/100 ml or more; Y93.55 Activity, bike riding; Y92.89 Other specified places as the place of occurrence of the external cause; Y99.9 Unspecified external cause status; Z79.4 Long term (current) use of insulin; Z79.84 Long term (current) use of oral hypoglycemic drugs; Z79.01 Long term (current) use of anticoagulants; Z79.899 Other long term (current) drug therapy
CPT/HCPCS: 36415; 71045; 73630; 73721; 80048; 80053; 80202; 80320; 81003; 82962; 83605; 83735; 83880; 84145; 85025; 85651; 93005; 93923; 93970; 93971; 94640; 99291; J0360; J1815; J2060; J2405; J2543; J3370; J3411; J3490; J7030; J7060; J7070; G0480

== ENCOUNTER 2022-08-12 13:01 | Emergency (ER) | payer MEDICAID, OTHER ==
[~2022-08-12] VITALS: Ht 180.3 cm; Wt 141.0 kg
[~2022-08-12 13:01] MED LIST changes: +CEPH500C2 MT; -DEXA6TAB MT; -DIABETIC MEDS; -IBUP-2029 MT; -LORA2ORA5 PO; -PHEN20SP MT; -[UNRECOGNIZED DRUG - CODE]
[2022-08-12] MEDS ORDERED: CHLORDIAZEPOXIDE 25MG CAPSULE PO ONE (13:45)
[2022-08-12 14:01] VITALS: BP 130/80
== END 2022-08-12 14:03 | disposition home or self-care (01) ==
LOC: ER 13:01
DX: F10.129 Alcohol abuse with intoxication, unspecified (principal); E11.65 Type 2 diabetes mellitus with hyperglycemia; F41.9 Anxiety disorder, unspecified; I10 Essential (primary) hypertension; Z79.899 Other long term (current) drug therapy; Z79.84 Long term (current) use of oral hypoglycemic drugs
CPT/HCPCS: 99283

== ENCOUNTER 2022-08-14 14:39 | Inpatient (IN) | payer OTHER ==
[~2022-08-14] VITALS: Ht 180.3 cm; Wt 132.6 kg
[2022-08-14] MEDS ORDERED: MULTIVITAMINS,THER W-MINERALS TABLET PO NR (15:45)
[2022-08-14] MEDS ORDERED: LORAZEPAM 2MG/ML CPJ IV ONE ×2 (15:45→19:15)
[2022-08-14] MEDS ORDERED: FOLIC ACID 1 MG, THIAMINE HCL 100 MG in DEXTROSE 5% WATER 1,000 ML IV ONE (15:45)
[2022-08-14] MEDS ORDERED: PANTOPRAZOLE SODIUM 40 MG/VIAL IV ONE (15:45)
[2022-08-14] MEDS ORDERED: SODIUM CHLORIDE 0.9% 1,000 ML IV ONE ×2 (15:45)
[2022-08-14] MEDS ORDERED: FOLIC ACID 1 MG, THIAMINE HCL 100 MG, MVI, ADULT NO.1 10 ML in DEXTROSE 5% WATER 1,000 ML IV ONE ×4 (15:45)
[2022-08-14 16:14] LABS: CHLORIDE 100 mEq/L (98-107)
[2022-08-14 16:16] LABS: INR 0.9; PROTHROMBIN TIME 10.2 sec (9.6-11.0)
[2022-08-14 16:29] LABS: BASOPHILS % 0.3 % (0.0-2.0); EOSINOPHILS % 0.2 % (0.0-5.0); HEMATOCRIT. 41.3 % (42.0-52.0); HEMOGLOBIN. 13.9 g/dL (14.0-18.0); LYMPHOCYTES % 28.9 % (20.0-50.0); MEAN CORPUSCULAR HEMOGLOBIN 28.1 pg (28.0-32.0); MEAN CORPUSCULAR VOLUME 83.4 fL (80.0-94.0); MEAN PLATELET VOLUME 6.9 fl (7.4-10.4); MONOCYTES % 10.1 % (2.0-8.0); NEUTROPHILS % 60.5 % (40.0-76.0); PLATELET 225 x1000/uL (130-400); RED BLOOD CELL COUNT 4.95 mill/uL (4.7-6.1); RED CELL DISTRIBUTION WIDTH 14.4 % (11.6-14.6)
[2022-08-14] MEDS ORDERED: LORAZEPAM 2MG/ML CPJ IV NR (21:45)
[2022-08-15] MEDS: LORAZEPAM 2MG/ML CPJ IV PRN ×4 (04:29→20:53)
[2022-08-15 08:25] VITALS: BP 146/88
[2022-08-15 12:00] VITALS: BP 190/100
[2022-08-15 12:15] VITALS: BP 124/67
[2022-08-15] MEDS: SODIUM CHLORIDE 0.45% 1,000 ML IV SCH (13:15)
[2022-08-15] MEDS: CHLORDIAZEPOXIDE 25MG CAPSULE PO SCH ×2 (14:27→21:27)
[2022-08-15 15:34] LABS: HEMATOCRIT 42.2 % (42.0-52.0); HEMOGLOBIN 14.3 g/dL (14.0-18.0)
[2022-08-15 16:00] VITALS: BP 154/90
[2022-08-15] MEDS ORDERED: DEXTROSE 50% WATER 50ML SYRINGE IV PRN (18:15)
[2022-08-15] MEDS: BLOOD SUGAR DIAGNOSTIC STRIP TEST SCH ×2 (18:26→21:00)
[2022-08-15] MEDS: INSULIN LISPRO 100 UNITS/ML SUBCUT SCH ×2 (18:27→21:22)
[2022-08-15 20:00] VITALS: BP 137/84
[2022-08-15] MEDS: PANTOPRAZOLE SODIUM 40 MG/VIAL IV SCH (20:53)
[2022-08-16] VITALS: BP 133/85
[2022-08-16] MEDS: SODIUM CHLORIDE 0.45% 1,000 ML IV SCH (02:08)
[2022-08-16 04:00] VITALS: BP 148/87
[2022-08-16] MEDS: LORAZEPAM 2MG/ML CPJ IV PRN ×5 (04:32→22:16)
[2022-08-16] MEDS: CHLORDIAZEPOXIDE 25MG CAPSULE PO SCH ×3 (06:00→22:05)
[2022-08-16 06:26] LABS: BASOPHILS % 0.3 % (0.0-2.0); EOSINOPHILS % 0.9 % (0.0-5.0); HEMATOCRIT. 39.7 % (42.0-52.0); HEMOGLOBIN. 13.5 g/dL (14.0-18.0); LYMPHOCYTES % 29.4 % (20.0-50.0); MEAN CORPUSCULAR HEMOGLOBIN 28.5 pg (28.0-32.0); MEAN CORPUSCULAR VOLUME 83.7 fL (80.0-94.0); MEAN PLATELET VOLUME 7.3 fl (7.4-10.4); MONOCYTES % 10.4 % (2.0-8.0); PLATELET 190 x1000/uL (130-400); RED BLOOD CELL COUNT 4.74 mill/uL (4.7-6.1); RED CELL DISTRIBUTION WIDTH 14.6 % (11.6-14.6)
[2022-08-16 06:38] LABS: PROTHROMBIN TIME 10.7 sec (9.6-11.0)
[2022-08-16] MEDS: BLOOD SUGAR DIAGNOSTIC STRIP TEST SCH ×4 (06:38→21:00)
[2022-08-16] MEDS: INSULIN LISPRO 100 UNITS/ML SUBCUT SCH ×6 (06:41→22:08)
[2022-08-16 07:01] LABS: FERRITIN 376 ng/mL (22-322)
[2022-08-16 07:11] LABS: VITAMIN B12 SERUM 634 pg/mL (211-911)
[2022-08-16 07:12] LABS: HEPATITIS B SURFACE ANTIGEN NEGATIVE
[2022-08-16 07:25] LABS: FOLIC ACID (FOLATE) SERUM > 20.00 ng/mL (>5.38)
[2022-08-16 08:00] VITALS: BP 135/80
[2022-08-16 08:16] LABS: CHLORIDE 100 mEq/L (98-107)
[2022-08-16] MEDS: PANTOPRAZOLE SODIUM 40 MG/VIAL IV SCH ×2 (08:30→22:15)
[2022-08-16 08:39] LABS: TOTAL IRON BINDING CAPACITY 277 ug/dL (250-450)
[2022-08-16] MEDS: FOLIC ACID 1MG TABLET PO SCH ×2 (09:00→10:53)
[2022-08-16] MEDS: THIAMINE HCL 100MG TABLET PO SCH ×2 (09:00→10:54)
[2022-08-16] MEDS: MULTIVITAMINS,THER W-MINERALS TABLET PO SCH ×2 (09:00→10:54)
[2022-08-16] MEDS: INSULIN GLARGINE 100 UNITS/ML SUBCUT SCH ×3 (10:00→22:07)
[2022-08-16 12:00] VITALS: BP 149/96
[2022-08-16] MEDS ORDERED: INSULIN LISPRO 100 UNITS/ML SUBCUT NR (13:30)
[2022-08-16] MEDS ORDERED: POTASSIUM CHLORIDE 20MEQ TABLET SR PO NR (14:30)
[2022-08-16 16:00] VITALS: BP 155/83
[2022-08-16 20:00] VITALS: BP 143/90
[2022-08-17] VITALS: BP 139/81
[2022-08-17 04:00] VITALS: BP 140/76
[2022-08-17] MEDS: SODIUM CHLORIDE 0.45% 1,000 ML IV SCH (04:51)
[2022-08-17 05:34] LABS: BASOPHILS % 0.4 % (0.0-2.0); EOSINOPHILS % 1.5 % (0.0-5.0); HEMATOCRIT. 39.5 % (42.0-52.0); HEMOGLOBIN. 13.4 g/dL (14.0-18.0); MEAN CORPUSCULAR HEMOGLOBIN 28.4 pg (28.0-32.0); MEAN CORPUSCULAR VOLUME 83.9 fL (80.0-94.0); MEAN PLATELET VOLUME 7.2 fl (7.4-10.4); MONOCYTES % 9.4 % (2.0-8.0); NEUTROPHILS % 51.7 % (40.0-76.0); PLATELET 174 x1000/uL (130-400); RED BLOOD CELL COUNT 4.71 mill/uL (4.7-6.1)
[2022-08-17 06:05] LABS: CHLORIDE 104 mEq/L (98-107)
[2022-08-17] MEDS: BLOOD SUGAR DIAGNOSTIC STRIP TEST SCH ×2 (06:12→11:40)
[2022-08-17] MEDS: CHLORDIAZEPOXIDE 25MG CAPSULE PO SCH ×2 (06:28→14:59)
[2022-08-17] MEDS: INSULIN LISPRO 100 UNITS/ML SUBCUT SCH ×4 (06:28→13:11)
[2022-08-17 08:00] VITALS: BP 123/70
[2022-08-17] MEDS: FOLIC ACID 1MG TABLET PO SCH (09:13)
[2022-08-17] MEDS: LORAZEPAM 2MG/ML CPJ IV PRN ×2 (09:13→15:19)
[2022-08-17] MEDS: PANTOPRAZOLE SODIUM 40 MG/VIAL IV SCH (09:13)
[2022-08-17] MEDS: MULTIVITAMINS,THER W-MINERALS TABLET PO SCH (09:13)
[2022-08-17] MEDS: THIAMINE HCL 100MG TABLET PO SCH (09:14)
[2022-08-17] MEDS: INSULIN GLARGINE 100 UNITS/ML SUBCUT SCH (10:53)
[2022-08-17 12:00] VITALS: BP 134/78
[2022-08-17 14:37] VITALS: BP 123/74
[2022-08-17 16:00] VITALS: BP 130/72
== END 2022-08-17 16:50 | disposition home or self-care (01) | DRG 241 ==
LOC: ER 14:41 → EDBEDREQ 19:23 → MICUSO 20:12 → EDBEDREQ 20:40 → 7EST 08-15 12:24
PROVIDERS: ADMIT Internal Medicine; ATTEND Internal Medicine
DX: K29.21 Alcoholic gastritis with bleeding (principal); E87.1 Hypo-osmolality and hyponatremia; K76.0 Fatty (change of) liver, not elsewhere classified; F10.129 Alcohol abuse with intoxication, unspecified; D72.819 Decreased white blood cell count, unspecified; E11.65 Type 2 diabetes mellitus with hyperglycemia; E66.9 Obesity, unspecified; F10.139 Alcohol abuse with withdrawal, unspecified; I10 Essential (primary) hypertension; Z68.41 Body mass index [BMI] 40.0-44.9, adult; K57.90 Diverticulosis of intestine, part unspecified, without perforation or abscess without bleeding; Y90.7 Blood alcohol level of 200-239 mg/100 ml; M43.10 Spondylolisthesis, site unspecified; F41.9 Anxiety disorder, unspecified; Z86.711 Personal history of pulmonary embolism; Z86.718 Personal history of other venous thrombosis and embolism; Z90.49 Acquired absence of other specified parts of digestive tract; Z87.891 Personal history of nicotine dependence
CPT/HCPCS: 36415; 71045; 74176; 76700; 80048; 80053; 80076; 80320; 82607; 82728; 82746; 82947; 82962; 83540; 83550; 83735; 84484; 85014; 85018; 85025; 85044; 86705; 86709; 86803; 86850; 86900; 87340; 93970; 99285; C9113; J1815; J2060; J3411; J3490; J7030; J7070; G0480

== ENCOUNTER 2022-10-04 17:33 | Emergency (ER) | payer MEDICAID, OTHER ==
[~2022-10-04] VITALS: Ht 180.3 cm; Wt 127.0 kg
[2022-10-04 17:40] VITALS: BP 138/96
[2022-10-04 18:41] LABS: BASOPHILS % 0.4 % (0.0-2.0); EOSINOPHILS % 0.3 % (0.0-5.0); HEMATOCRIT. 44.4 % (42.0-52.0); HEMOGLOBIN. 14.9 g/dL (14.0-18.0); LYMPHOCYTES % 29.5 % (20.0-50.0); MEAN CORPUSCULAR VOLUME 83.3 fL (80.0-94.0); MEAN PLATELET VOLUME 6.9 fl (7.4-10.4); MONOCYTES % 6.4 % (2.0-8.0); NEUTROPHILS % 63.4 % (40.0-76.0); PLATELET 284 x1000/uL (130-400); RED BLOOD CELL COUNT 5.33 mill/uL (4.7-6.1); RED CELL DISTRIBUTION WIDTH 14.2 % (11.6-14.6)
[2022-10-04 18:42] LABS: CHLORIDE 100 mEq/L (98-107)
[2022-10-04 18:51] LABS: ETHANOL BLOOD 253 mg/dL (-10)
== END 2022-10-04 18:45 | disposition left against medical advice (07) ==
LOC: ER 17:33
DX: Z53.21 Procedure and treatment not carried out due to patient leaving prior to being seen by health care provider (principal)
CPT/HCPCS: 36415; 80053; 80320; 85025; 99281; G0480

== ENCOUNTER 2022-10-21 11:43 | Emergency (ER) | payer MEDICAID ==
[~2022-10-21] VITALS: Ht 175.3 cm; Wt 127.0 kg
[2022-10-21 11:46] VITALS: BP 167/93; PULSE 96; RESP 16; TEMP 98.3; O2SAT 98
[2022-10-21] MEDS ORDERED: ONDANSETRON 4MG ODT PO STA (12:06)
[2022-10-21 12:45] LABS: BASOPHILS % 0.5 % (0.0-2.0); EOSINOPHILS % 0.3 % (0.0-5.0); HEMATOCRIT. 41.1 % (42.0-52.0); HEMOGLOBIN. 14.5 g/dL (14.0-18.0); LYMPHOCYTES % 21.9 % (20.0-50.0); MEAN CORPUSCULAR HEMOGLOBIN 29.2 pg (28.0-32.0); MEAN CORPUSCULAR VOLUME 82.8 fL (80.0-94.0); MEAN PLATELET VOLUME 6.7 fl (7.4-10.4); MONOCYTES % 7.4 % (2.0-8.0); NEUTROPHILS % 69.9 % (40.0-76.0); PLATELET 268 x1000/uL (130-400); RED BLOOD CELL COUNT 4.96 mill/uL (4.7-6.1); RED CELL DISTRIBUTION WIDTH 14.1 % (11.6-14.6)
[2022-10-21 12:52] LABS: CHLORIDE 102 mEq/L (98-107)
[2022-10-21 12:59] LABS: ETHANOL BLOOD 284 mg/dL (-10)
[2022-10-21] MEDS ORDERED: LORAZEPAM 1MG TABLET PO ONE ×2 (13:15→14:30)
== END 2022-10-21 14:46 | disposition left against medical advice (07) ==
LOC: ER 11:43
DX: F10.129 Alcohol abuse with intoxication, unspecified (principal); E11.9 Type 2 diabetes mellitus without complications; I10 Essential (primary) hypertension; Z53.21 Procedure and treatment not carried out due to patient leaving prior to being seen by health care provider; Z98.890 Other specified postprocedural states; Z90.49 Acquired absence of other specified parts of digestive tract; Y90.8 Blood alcohol level of 240 mg/100 ml or more
CPT/HCPCS: 36415; 71045; 80053; 80320; 83690; 85025; 99284; Q0162; G0480